=== PATIENT | female | born 1945 | race Caucasian/White ===

== ENCOUNTER 2018-06-12 06:55 | Outpatient (CLI) | payer BC ==
--- NOTE | 2018-06-12 09:20 | ULT ---
BILATERAL LOWER EXTREMITY VENOUS DUPLEX EXAM: HISTORY: The patient states they are status post vein closure of the right and left legs. Reports feeling a k not in the calf region within the left leg. Bilateral leg pain. FINDINGS: Real-time color Doppler evaluation of the right and left lower extremities was performed from groin t o calf. This includes evaluation of common femoral, superficial and profunda femoral, saphenous, pop liteal, and posterior tibial veins. This shows patent deep venous systems with normal compressibilit y and augmentation. On the left side in the region of the patient's palpable knot is a superficial vein which is patent a nd shows normal compressibility. IMPRESSION: No evidence of deep vein thrombosis of either lower extremity. POS: KRIS
== END 2018-06-12 06:56 | disposition home or self-care (01) ==
LOC: SCSULT 06:55
PROVIDERS: ATTEND Family Medicine
DX: I82.403 Acute embolism and thrombosis of unspecified deep veins of lower extremity, bilateral (principal)
CPT/HCPCS: 93970

== ENCOUNTER 2018-09-11 11:37 | Outpatient (CLI) | payer BC ==
--- NOTE | 2018-09-11 12:07 | RAD ---
XR Chest Pa Lat STANDARD HISTORY: Fall, left-sided chest pain COMPARISON: None FINDINGS: The heart size is normal. The lungs are well expanded without focal areas of consolidation, pneumothorax or pleural effusions. IMPRESSION: No radiographic evidence of acute cardiopulmonary process.
--- NOTE | 2018-09-11 12:08 | RAD ---
Left rib series: HISTORY: Fall, left rib pain FINDINGS: No left-sided fracture is seen.
== END 2018-09-11 11:38 | disposition home or self-care (01) ==
LOC: SCSRAD 11:37
PROVIDERS: ATTEND Family Medicine
DX: R07.9 Chest pain, unspecified (principal); R06.00 Dyspnea, unspecified
CPT/HCPCS: 71046

== ENCOUNTER 2019-01-14 12:58 | Outpatient (CLI) | payer BC ==
--- NOTE | 2019-01-14 13:43 | RAD ---
THORACIC SPINE 3 VIEWS: Date: 01/14/19 INDICATION: Back pain. FINDINGS: Mild degenerative change in the thoracic spine with osteophytes and disc narrowing. No evidence of ve rtebral body compression. No lytic or blastic process. There is a prominent thoracolumbar scoliosis w ith convexity to the left in the mid lumbar spine measured at 20 degrees. IMPRESSION: Degenerative changes of thoracic spine. No evidence of acute compression deformity. Scoliosis at the thoracolumbar spine. POS: KRIS
== END 2019-01-14 12:59 | disposition home or self-care (01) ==
LOC: SCSRAD 12:58
PROVIDERS: ATTEND Family Medicine
DX: M54.9 Dorsalgia, unspecified (principal); M47.814 Spondylosis without myelopathy or radiculopathy, thoracic region
CPT/HCPCS: 72072

== ENCOUNTER 2023-11-05 15:09 | Outpatient (CLI) | payer MEDICARE, OTHER | END 2023-11-05 15:10 | disposition home or self-care (01) | LOC: BICRAD 15:09 | PROVIDERS: ATTEND Family Medicine | DX: M25.512 Pain in left shoulder (principal); M19.012 Primary osteoarthritis, left shoulder ==

== ENCOUNTER 2024-12-01 09:32 | Outpatient (CLI) | payer MEDICARE | END 2024-12-01 09:33 | disposition home or self-care (01) | LOC: BICMAMMO 09:32 | PROVIDERS: ATTEND Family Medicine | DX: Z12.31 Encounter for screening mammogram for malignant neoplasm of breast (principal) | CPT/HCPCS: 77063; 77067 ==